=== PATIENT | male | born 1990 | race Caucasian/White ===

== ENCOUNTER 2016-09-24 16:20 | Emergency (ER) | payer SELFPAY ==
[~2016-09-24] VITALS: Ht 182.9 cm; Wt 90.0 kg
[2016-09-24 16:21] VITALS: BP 139/78; PULSE 98; RESP 18; TEMP 98.3; O2SAT 98
== END 2016-09-24 20:51 | disposition left against medical advice (07) ==
LOC: NED 16:20
DX: R22.42 Localized swelling, mass and lump, left lower limb (principal); L53.9 Erythematous condition, unspecified; Z53.21 Procedure and treatment not carried out due to patient leaving prior to being seen by health care provider
CPT/HCPCS: 99281